=== PATIENT | male | born 1990 | race Two or more races ===

== ENCOUNTER 2018-08-31 03:31 | Emergency (ER) | payer OTHER ==
[2018-08-31 03:37] VITALS: BP 148/99
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
== END 2018-08-31 03:58 | disposition home or self-care (01) ==
DX: S00.31XA Abrasion of nose, initial encounter (principal); V49.9XXA Car occupant (driver) (passenger) injured in unspecified traffic accident, initial encounter; Y92.410 Unspecified street and highway as the place of occurrence of the external cause